=== PATIENT | male | born 1955 | race Caucasian/White ===

== ENCOUNTER 2017-12-22 19:10 | Emergency (ER) | payer OTHER ==
[2017-12-22] MEDS ORDERED: PROPARACAINE 0.5% OPHTH DROPS 15 ML RIGHTEYE STA (19:37)
[2017-12-22] MEDS ORDERED: ERYTHROMYCIN OPHTH OINT 1 GM TUBE RIGHTEYE STA (20:12)
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
[2017-12-22 20:28] VITALS: BP 129/80
== END 2017-12-22 20:26 | disposition home or self-care (01) ==
LOC: ED 19:10
DX: S05.01XA Injury of conjunctiva and corneal abrasion without foreign body, right eye, initial encounter (principal); W22.8XXA Striking against or struck by other objects, initial encounter; Y93.H2 Activity, gardening and landscaping
CPT/HCPCS: 99283; J3490

== ENCOUNTER 2020-12-31 12:00 | Outpatient (CLI) | payer OTHER ==
[2020-12-31 14:42] LABS: BASOPHILS # (AUTO) 0.1 10^3/uL (0.0-0.1); BASOPHILS % (AUTO) 1.7 %; EOSINOPHILS # (AUTO) 0.2 10^3/uL (0.0-0.7); EOSINOPHILS % (AUTO) 5.5 %; HCT - HEMATOCRIT 45.2 % (42.0-52.0); HGB - HEMOGLOBIN 15.4 g/dL (14.0-18.0); LYMPHOCYTES # (AUTO) 1.6 10^3/uL (1.5-3.5); LYMPHOCYTES % (AUTO) 38.5 %; MEAN CORPUSCULAR HEMOGLOBIN 32.6 pg (27.0-31.0); MEAN CORPUSCULAR HGB CONC 34.1 g/dL (32.0-36.0); MEAN CORPUSCULAR VOLUME 95.6 fL (80.0-94.0); MEAN PLATELET VOLUME 11.1 fL (7.4-11.4); MONOCYTES # (AUTO) 0.3 10^3/uL (0.0-1.0); MONOCYTES % (AUTO) 7.7 %; NEUTROPHILS # (AUTO) 1.9 10^3/uL (1.5-6.6); NEUTROPHILS % (AUTO) 46.4 %; PLT - PLATELET COUNT 178 10^3/uL (130-450); RED BLOOD COUNT 4.73 10^6/uL (4.70-6.10); RED CELL DISTRIBUTION WIDTH 12.6 % (12.0-15.0)
[2020-12-31 15:40] LABS: ALBUMIN 4.6 g/dL (3.2-5.5); ALBUMIN/GLOBULIN RATIO 1.6 (1.0-2.2); BILIRUBIN,TOTAL 0.9 mg/dL (0.2-1.0); CALCIUM 9.1 mg/dL (8.5-10.3); CREATININE 0.9 mg/dL (0.6-1.2); TOTAL PROTEIN 7.4 g/dL (6.7-8.2)
== END 2020-12-31 12:01 | disposition home or self-care (01) ==
LOC: LAB.S 12:00
PROVIDERS: ATTEND Internal Medicine
DX: R53.83 Other fatigue (principal)
CPT/HCPCS: 36415; 80053; 84443; 85025

== ENCOUNTER 2022-06-01 10:34 | Emergency (ER) | payer MEDICARE, OTHER ==
[2022-06-01 10:43] VITALS: BP 148/105
[2022-06-01] MEDS ORDERED: TETANUS/DIPHTHERIA/PERTUSSIS 0.5 ML SYRINGE IM ONE (12:44)
--- NOTE | 2022-06-01 12:47 | ED Physician Documentation ---
History of Present Illness - Stated complaint Stated Complaint: L ARM LAC - Chief complaint Chief Complaint: Laceration - History obtained from History obtained from: Patient - History of Present Illness Timing: Yesterday Pain level max: 3 Pain level now: 0 - Additonal information Additional information: Patient is a 67-year-old male who presents to the emergency department with a small laceration to his left forearm. This occurred yesterday on a chain saw. He states he initially bandaged the wound, when he took off the bandage this morning the wound appeared to open up again. Unknown last tetanus shot. No active bleeding. Nothing makes it better or worse. No pain currently. No fever. No chills. Patient is right-handed Review of Systems Constitutional: denies: Fever, Chills Skin: denies: Rash Neurologic: denies: Headache PD PAST MEDICAL HISTORY - Past Medical History Cardiovascular: None Respiratory: Pneumonia Neuro: Seizure disorder Endocrine/Autoimmune: None GI: Hiatal hernia : None HEENT: None Psych: Depression Musculoskeletal: None Derm: None - Past Surgical History Past Surgical History: Yes General: Colonoscopy - Allergies Allergies/Adverse Reactions: Allergies Allergy/AdvReac Type Severity Reaction Status Date / Time No Known Drug Allergies Allergy Verified 06/01/22 10:43 - Social History Does the pt smoke?: No Smoking Status: Never smoker Does the pt have substance abuse?: No - Immunizations Immunizations are current?: Yes - POLST Patient has POLST: No PD ED PE NORMAL - Vitals Vital signs reviewed: Yes - General General: Alert and oriented X 3, No acute distress - Derm Derm: Warm and dry - Extremities Extremities: Other (L forearm - L forearm - 2cm linear laceration. Subcutaneous. Not into any deeper structures. No bleeding. Neurovascular intact. No bony involvement) - Neuro Neuro: Alert and oriented X 3 - Psych Psych: Normal mood, Normal affect Results - Vitals Vitals: Vital Signs - 24 hr 06/01/22 10:39 Temperature 36.4 C L Heart Rate 80 Respiratory 16 Rate Blood Pressure 148/105 H O2 Saturation 98 Oxygen O2 Source Room air PD MEDICAL DECISION MAKING - ED course Complexity details: considered differential, d/w patient ED course: Patient with a small laceration that is over 24 hours old. Steri-Strips applied. We will hold off on suturing due to infectious risk. Tdap given. Warnings of infection and instructions on wound care given at bedside. Patient counseled regarding signs and symptoms for which I believe and urgent re- evaluation would be necessary. Patient with good understanding of and agreement to plan and is comfortable going home at this time This document was made in part using voice recognition software. While efforts are made to proofread this document, sound alike and grammatical errors may occur. Departure - Departure Disposition: 01 Home, Self Care Clinical Impression: Laceration Condition: Good Instructions: ED Laceration Ext Sutr Stap Tape Follow-Up: Renzo Lan MD [Primary Care Provider] - Comments: Please follow-up with your doctor within 3 to 4 days for a wound check. Please return if you worsen. Keep the wound clean. The Steri-Strips will fall off on their own in a few days. As we discussed, primary closure was not performed due to the length of time that the wound has been open. Return for redness, swelling or drainage from the wound.
== END 2022-06-01 13:04 | disposition home or self-care (01) ==
LOC: ED 10:34
DX: S51.812A Laceration without foreign body of left forearm, initial encounter (principal); W29.3XXA Contact with powered garden and outdoor hand tools and machinery, initial encounter; Z23 Encounter for immunization; Z71.85 Encounter for immunization safety counseling
CPT/HCPCS: 90471; 99282; 99283

== ENCOUNTER 2024-01-07 00:02 | Emergency (ER) | payer MEDICARE ==
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
[2024-01-07 00:31] LABS: BASOPHILS # (AUTO) 0.1 10^3/uL (0.0-0.1); BASOPHILS % (AUTO) 0.7 %; EOSINOPHILS # (AUTO) 0.2 10^3/uL (0.0-0.7); EOSINOPHILS % (AUTO) 1.8 %; HCT - HEMATOCRIT 44.7 % (42.0-52.0); HGB - HEMOGLOBIN 15.5 g/dL (14.0-18.0); LYMPHOCYTES # (AUTO) 1.8 10^3/uL (1.5-3.5); LYMPHOCYTES % (AUTO) 18.8 %; MEAN CORPUSCULAR HEMOGLOBIN 32.6 pg (27.0-31.0); MEAN CORPUSCULAR HGB CONC 34.7 g/dL (32.0-36.0); MEAN CORPUSCULAR VOLUME 94.1 fL (80.0-94.0); MEAN PLATELET VOLUME 10.6 fL (7.4-11.4); MONOCYTES # (AUTO) 0.4 10^3/uL (0.0-1.0); MONOCYTES % (AUTO) 3.8 %; NEUTROPHILS # (AUTO) 7.2 10^3/uL (1.5-6.6); NEUTROPHILS % (AUTO) 74.6 %; PLT - PLATELET COUNT 171 10^3/uL (130-450); RED BLOOD COUNT 4.75 10^6/uL (4.70-6.10); RED CELL DISTRIBUTION WIDTH 12.5 % (12.0-15.0); WHITE BLOOD COUNT 9.7 x10^3/uL (4.8-10.8)
[2024-01-07] MEDS: MECLIZINE 12.5 MG TABLET PO STA (00:39)
[2024-01-07] MEDS: ONDANSETRON 4 MG/2 ML VIAL IVP STA (00:39)
[2024-01-07] MEDS: SODIUM CHLORIDE 0.9% 1,000 ML IV STA (00:40)
[2024-01-07 00:42] LABS: CALCIUM 9.4 mg/dL (8.5-10.3); POTASSIUM 3.5 mmol/L (3.5-4.5)
[2024-01-07 00:47] VITALS: O2SAT 97
[2024-01-07] MEDS: diazePAM 5 MG TABLET PO STA (02:50)
[2024-01-07 04:29] VITALS: BP 138/78
--- NOTE | 2024-01-07 07:48 | CT Report ---
PROCEDURE: Head WO INDICATIONS: dizziness, PICHARDO TECHNIQUE: Noncontrast 4.5 mm thick angled axial sections acquired from the foramen magnum to the vertex. For r adiation dose reduction, the following was used: automated exposure control, adjustment of mA and/or kV according to patient size. COMPARISON: None. FINDINGS: Image quality: Excellent. CSF spaces: Basal cisterns are patent. No extra-axial fluid collections. Ventricles demonstrate no obstruction. There is ex vacuo dilation of the right temporal horn of the lateral ventricle secondar y to adjacent encephalomalacia. Brain: No midline shift. No intracranial masses or hemorrhage. Lorenz-white matter interface is norm al. Low-attenuation is present in the right temporal parietal lobe with adjacent ex vacuo dilation o f the right lateral temporal horn. This is consistent with encephalomalacia of prior infarction. Skull and face: Calvarium and visualized facial bones are intact, without suspicious lesions. Parti ally visualized presumably fixation wire at the left posterior lateral C1. There is increased anterio r gland to dental interval measuring approximately 5.8 cm. No surrounding edema or fluid. Sinuses: Visualized sinuses and mastoids are clear. IMPRESSION: 1. No acute intracranial process. 2. Partially visualized wire at C1 with increased atlantodental interval. Findings are likely related to prior trauma. However, if concern is present for acute fracture, CT cervical spine is recommended . The above findings are concordant with preliminary report. Reviewed by: Amanda Stein MD on 01/07/2024 7:47 AM PDT Approved by: Amanda Stein MD on 01/07/2024 7:47 AM PDT Station ID: [id number]
== END 2024-01-07 04:28 | disposition home or self-care (01) ==
LOC: ED 00:02
DX: R42 Dizziness and giddiness (principal); R51.9 Headache, unspecified
CPT/HCPCS: 36415; 70450; 80048; 85025; 96374; 99283; 99284; A9270